=== PATIENT | female | born 1940 | race Caucasian/White ===

== ENCOUNTER → 2019-06-07 | Outpatient (CLI) | payer MEDICARE, OTHER ==
[2015-01-04 13:45] VITALS: BP 116/68
[~2019-06-07] MED LIST: ACET500L17 PO; CALC-450 PO; CETI10TA16 PO; DILT300C2 PO; EDOX60TA2 PO; ESOM40CA PO; ESTR0.3T PO; FLEC50TA PO; FLUT1DIS5 IH; FLUT9.9S NS; GUAI600T47 PO; LOSA100T14 PO; OPTIVAR IO; TIOT18CA IH; ZAFI20TA11 PO; ZOLPIDEM 5 MG TABLET. PO ONE
--- NOTE | 2019-06-08 12:36 | SLEEP ---
DATE OF STUDY: 06/07/2019 SLEEP STUDY REFERRING PHYSICIAN: Ngozi Soni MD. The patient is a 78-year-old who weighs 175 pounds with a BMI of 30. The patient's [place] score was 2. The patient had a prior history of sleep apnea at another facility and her machine stopped working. During the night study, the patient spent 446 minutes in bed and slept for 316 minutes with a sleep efficiency of 71%. Sleep latency was 153 minutes with a REM latency of 310 minutes. Overall, sleep architecture showed increased stage 1 and stage 2 sleep, absent slow wave and significantly reduced REM sleep. During the night study, the patient had 13 obstructive apneas, no mixed or central apneas and 37 hypopneas. The patient's AHI was 10 per hour, supine AHI 9 per hour. Very minimal REM sleep was observed. EKG monitoring revealed normal sinus rhythm, average heart rate 80 beats per minute, no arrhythmias observed. Nocturnal oximetry study revealed an average oxygen saturation of 92%; the lowest of 83%. A 91% of time oxygen saturation remained between 80% and 89% suggesting hypoventilation. No PLMS seen. Due to low AHI, the patient did not meet the split night criteria for CPAP initiation. IMPRESSION: 1. Mild sleep apnea-hypopnea syndrome at an AHI of 10 per hour. Only 1 minute of REM sleep was observed which could have underestimated the severity of sleep apnea. 2. Sustained pattern of nocturnal hypoxia suggesting hypoventilation. 3. No clinically significant periodic limb movements. RECOMMENDATIONS: 1. If the patient is clinically symptomatic or has comorbid conditions, then consider treatment of sleep apnea with CPAP. 2. Weight loss is strongly advised. 3. Avoid [employer] depressants. 4. Cautioned regarding driving until symptoms of sleep apnea resolve with above recommendation. 5. If the patient does not undergo CPAP, then the patient would be eligible for oxygen 2 liters at night. OMA MULTANI MD DR: HARISH/benji JOB#: [id number] / [id number] LOIDA Hannah MD, SABATO MD
== END ==
LOC: SLPLAB 19:09
PROVIDERS: ATTEND Internal Medicine Pulmonary Disease
DX: G47.33 Obstructive sleep apnea (adult) (pediatric) (principal); G47.34 Idiopathic sleep related nonobstructive alveolar hypoventilation
CPT/HCPCS: 95810

== ENCOUNTER → 2021-02-26 | Day surgery (SDC) | payer MEDICARE, OTHER ==
[~2021-02-26] VITALS: Ht 162.6 cm; Wt 79.5 kg
[~2021-02-26] MED LIST changes: +ALBUTEROL SULFATE 2.5 MG/3 ML NEBU. NEB ONE; +ALBUTEROL SULFATE 2.5 MG/3 ML NEBU. NEB PRN; +CYAN25008 PO; +EPINEPHrine 1 MG/ML VIAL INJ PRN; +EPINEPHrine 1 MG/ML VIAL ONE; +GLYCOPYRROLATE 1 MG/5 ML SYRINGE. ONE; +HYDR200T5 PO; +HYDROCORTISONE SOD SUCC/PF 100 MG/2 ML VIAL. ONE; +KETAMINE HCL IN NACL, ISO-OSM 50 MG/5 ML SYRINGE ONE; +LIDOCAINE 1% Multi-Dose 20 ML VIAL. INJ PRN; +LIDOCAINE 1% Multi-Dose 20 ML VIAL. ONE; +LIDOCAINE 2% PF 5 ML VIAL. ONE; +LIDOCAINE 2% VISCOUS 100 ML BOTTLE. MM PRN; +LIDOCAINE 2% VISCOUS 100 ML BOTTLE. ONE; +LIDOCAINE 4% TOPICAL 50 ML SOLUTION. MM PRN; +LIDOCAINE 4% TOPICAL 50 ML SOLUTION. ONE; +MV-M1TAB7 PO; +PRED2.5T PO; +PROPOFOL 10 MG/ML (20ML) VIAL. IV ONE; +RIVA10TA PO; -ZOLPIDEM 5 MG TABLET. PO ONE
[2021-02-26 11:05] VITALS: BP 155/68
[2021-02-26 11:10] LABS: BASO # 0.1 x10^3/uL (0.0-0.2); BASO % 1 % (0-3); EOS # 0.2 x10^3/uL (0.0-0.7); EOS % 1 % (0-3); HEMATOCRIT 35.6 % (36.0-47.0); HEMOGLOBIN 11.5 g/dL (12.0-15.5); LYMPH # 2.3 x10^3/uL (1.0-4.8); LYMPH % 16 % (24-48); MEAN CORPUSCULAR HEMOGLOBIN 26 pg (25-35); MEAN CORPUSCULAR HGB CONC 32 g/dL (31-37); MEAN CORPUSCULAR VOLUME 81 fL (79-100); MONO # 1.4 x10^3/uL (0.0-1.1); MONO % 9 % (0-9); NEUT # 10.7 x10^3/uL (1.8-7.7); NEUT % 73 % (31-73); PLATELET COUNT 369 x10^3/uL (140-400); RED CELL DISTRIBUTION WIDTH 17.5 % (11.5-14.5); WHITE BLOOD COUNT 14.6 x10^3/uL (4.0-11.0)
[2021-02-26 11:23] LABS: PROTHROMBIN TIME PATIENT 12.6 SEC (11.7-14.0)
--- NOTE | 2021-02-26 12:31 | OP ---
DATE OF SURGERY: 02/26/2021 INDICATIONS: Persistent cough and bilateral pneumonia. Informed consent was obtained from the patient. She agreed to proceed. All risks and benefits were explained. Sedation with propofol was used by anesthesia. Her both the nostrils were tight as a result bronchoscope was passed through the oral route. The upper airway was passed and vocal cords reached. No vocal cord lesion seen. The move equally with respiration. Trachea was entered. No tracheal lesions seen. The mary was sharp. Left lung was first examined. There were copious amount of purulent secretions seen throughout the left lung, worse in the lingula and left lower lobe. Bronchoalveolar lavage performed from the lingula as well as a left lower lobe. Bronchial washings were performed from the left lung as well. No endobronchial lesion seen. Bronch was introduced into the right lung. There were copious secretions in the right upper lobe. A bronchoalveolar lavage performed from this area. No significant secretion seen in the right middle or right lower lobe. No endobronchial lesions seen. The patient tolerated the procedure well. IMPRESSION: 1. Copious amount of creamy secretions seen throughout both lungs, worse in the left lingula, left lower lobe and right upper lobe. 2. No endobronchial lesion seen. 3. Bronchoalveolar lavage performed from the right upper lobe, lingula and left lower lobe and sent for appropriate studies including AFB and PCP. 4. The patient to follow up with Dr. Soni to discuss the results of the cultures. KATHERINE MOBLEY: Jorge TID: [id number]
[2021-02-26 12:40] VITALS: BP 162/79
--- NOTE | 2021-03-04 17:10 | PATHOLOGY ---
Note [facility] Accession Number: [id number] TESTS RESULT FLAG UNITS REF RANGE LAB Clinician Provided Cytology Information No. of containers..01 Other (Miscellaneous) Source: LLL BAL DIAGNOSIS: LLL BAL NEGATIVE FOR MALIGNANT CELLS. BRONCHIAL EPITHELIAL CELLS, FEW SQUAMOUS EPITHELIAL CELLS, PULMONARY MACROPHAGES, AND NEUTROPHILS PRESENT. PROPERLY CONTROLLED GMS STAIN IS NEGATIVE FOR PNEUMOCYSTIS AND YEAST/FUNGI. Signed out by: 02 Andreas Avery MD, Pathologist NPI- [id number] Performed by: Camilo Fontanez II, Venetian Blind Assembler ([facility]) Gross description: 38 ML, CLEAR, CLOUDY /LCS 02/28/2021 0103 Local FLAG LEGEND: L-Low Normal,H-High Normal,LL-Alert Low,HH-Alert High <-Panic Low,>-Panic High,A-Abnormal,AA-Critical Abnormal Performed at: [facility] [place] [address] Abrahan Sanchez MD, [id number] [place] [address] Andreas Avery MD, Performed at: [address], [place], [place] [id number] MD Abrahan Sanchez MD Phone: [phone]
--- NOTE | 2021-03-04 17:10 | PATHOLOGY ---
Note [facility] Accession Number: [id number] TESTS RESULT FLAG UNITS REF RANGE LAB Clinician Provided Cytology Information No. of containers..01 Other (Miscellaneous) Source: LEFT LUNG BR WASH DIAGNOSIS: LEFT LUNG BR WASH NEGATIVE FOR MALIGNANT CELLS. FEW SQUAMOUS EPITHELIAL CELLS AND PULMONARY MACROPHAGES PRESENT WITHIN A BACKGROUND OF OBSCURING NEUTROPHILS. NO PRESERVED BRONCHIAL EPITHELIAL CELLS PRESENT PROPERLY CONTROLLED GMS STAIN IS NEGATIVE FOR PNEUMOCYSTIS AND YEAST/FUNGI. Signed out by: Andreas Avery MD, Pathologist NPI- [id number] Performed by: Camilo Fontanez II, Tub Mender ([facility]) Gross description: 33 ML, WHITE, CLOUDY /LCS 02/28/2021 0059 Local FLAG LEGEND: L-Low Normal,H-High Normal,LL-Alert Low,HH-Alert High <-Panic Low,>-Panic High,A-Abnormal,AA-Critical Abnormal Performed at: [facility] [address] [place] [address] Abrahan Sanchez MD, [facility] [address] [place] [address] Andreas Avery MD, Performed at: [address], [place], [place] [id number] MD Abrahan Sanchez MD Phone: [phone]
== END | disposition home or self-care (01) ==
LOC: SURG 10:46
PROVIDERS: ATTEND Internal Medicine Critical Care Medicine
DX: J18.8 Other pneumonia, unspecified organism (principal); R05.3 Chronic cough; I10 Essential (primary) hypertension; J43.9 Emphysema, unspecified; K21.9 Gastro-esophageal reflux disease without esophagitis; M19.90 Unspecified osteoarthritis, unspecified site; Z90.49 Acquired absence of other specified parts of digestive tract; Z90.710 Acquired absence of both cervix and uterus; Z98.890 Other specified postprocedural states; Z87.891 Personal history of nicotine dependence; Z88.1 Allergy status to other antibiotic agents; Z88.2 Allergy status to sulfonamides; Z91.040 Latex allergy status
CPT/HCPCS: 31624; 36415; 85025; 85610; 87070; 87077; 87102; 87116; 87186; 87205; 88112; 88312; 94640; J1720; J2704; J3490; J7613; 31622; J0171

== ENCOUNTER 2021-03-28 07:49 | Outpatient (CLI) | payer MEDICARE, OTHER ==
[~2021-03-28 07:49] MED LIST changes: -ALBUTEROL SULFATE 2.5 MG/3 ML NEBU. NEB ONE; -ALBUTEROL SULFATE 2.5 MG/3 ML NEBU. NEB PRN; -EPINEPHrine 1 MG/ML VIAL INJ PRN; -EPINEPHrine 1 MG/ML VIAL ONE; -GLYCOPYRROLATE 1 MG/5 ML SYRINGE. ONE; -HYDROCORTISONE SOD SUCC/PF 100 MG/2 ML VIAL. ONE; -KETAMINE HCL IN NACL, ISO-OSM 50 MG/5 ML SYRINGE ONE; -LIDOCAINE 1% Multi-Dose 20 ML VIAL. INJ PRN; -LIDOCAINE 1% Multi-Dose 20 ML VIAL. ONE; -LIDOCAINE 2% PF 5 ML VIAL. ONE; -LIDOCAINE 2% VISCOUS 100 ML BOTTLE. MM PRN; -LIDOCAINE 2% VISCOUS 100 ML BOTTLE. ONE; -LIDOCAINE 4% TOPICAL 50 ML SOLUTION. MM PRN; -LIDOCAINE 4% TOPICAL 50 ML SOLUTION. ONE; -PROPOFOL 10 MG/ML (20ML) VIAL. IV ONE
[2021-03-28 08:16] VITALS: BP 139/65
[2021-03-28] MEDS ORDERED: LIDOCAINE WITH 8.4% SOD BICARB 3 ML DISP.SYRIN. ONE (08:37)
[2021-03-28] MEDS ORDERED: LIDOCAINE WITH 8.4% SOD BICARB 3 ML DISP.SYRIN. INJ ONE (09:00)
--- NOTE | 2021-03-28 12:52 | RAD ---
Date: Exam: Fluoroscopic and ultrasound guided peripheral central venous catheter placement. Indication: Consent: The procedure was explained in its entirety to the patient or the patients designated repres entative by a member of the treatment team, including a discussion of the risks, benefits and commonl y accepted alternatives to the procedure, as well as the expected consequences of no therapy whatsoev er. Discussion of the risks included, but was not limited to, those that are most frequent and thos e that are rare but possibly severe or life-threatening, as well as the possibility of unforeseen com plications. Discussion: A timeout procedure was performed. The patient was prepped and draped using maximum sterile techniq ue, including the use of: Current guideline approved cutaneous antisepsis, a large sterile sheet to e stablish a sterile field. Additionally the facsimile operator wore a hat, mask, sterile gloves, a sterile gown during the procedure as well as practiced acceptable hand hygiene prior to placing the line. 1% lidoc martínez was administered for local anesthesia. Ultrasound evaluation demonstrates a patent right cephalic vein. Reference images were saved in the medical record. The selected vein was accessed using micropuncture technique. A guidewire was advance d centrally. The PICC line was cut to length, and advanced through a peel-away sheath such that it's tip resides at the cavoatrial junction. The peel-away sheath a sheath was removed. The catheter was secured in place. The catheter was found to flush and aspirate normally.. Sterile dressings were appl ied. No immediate complications were identified. Fluoroscopy time: 0.5 minutes Dose area product: 0 point Gycm2 Impression: Successful placement of a right upper extremity PICC line Electronically signed by: Rafa Anne MD (03/28/2021 12:50 PM) [id number]
== END 2021-03-28 10:14 | disposition home or self-care (01) ==
LOC: INTRAD 07:49
PROVIDERS: ATTEND Family Medicine
DX: Z45.2 Encounter for adjustment and management of vascular access device (principal); I10 Essential (primary) hypertension; J43.9 Emphysema, unspecified; K21.9 Gastro-esophageal reflux disease without esophagitis; M19.90 Unspecified osteoarthritis, unspecified site; Z90.710 Acquired absence of both cervix and uterus; Z90.49 Acquired absence of other specified parts of digestive tract; Z98.890 Other specified postprocedural states; Z87.891 Personal history of nicotine dependence; Z79.899 Other long term (current) drug therapy; Z88.0 Allergy status to penicillin; Z88.1 Allergy status to other antibiotic agents; Z88.8 Allergy status to other drugs, medicaments and biological substances
CPT/HCPCS: 36573; C1751; C1892; J3490; 77001